=== PATIENT | female | born 1990 | race Caucasian/White ===

== ENCOUNTER 2020-04-19 11:07 | Outpatient (CLI) | payer MEDICAID ==
--- NOTE | 2020-04-19 18:30 | Consultation ---
DATE OF CONSULTATION: 04/19/2020 CHIEF COMPLAINT: Abdominal pain, bloating, GERD, constipation. HISTORY OF PRESENT ILLNESS: This is a 29-year-old female with a past medical history of IBS, history of celiac disease according to the patient, chronic GERD symptoms, now with constipation, who was referred for evaluation. PAST MEDICAL HISTORY: 1. Gastritis. 2. UTI. 3. GERD. 4. IBS. 5. Celiac disease, diagnosed with blood test. PAST SURGICAL HISTORY: None. MEDICATIONS: Please see medication reconciliation list. FAMILY HISTORY: No family history of GI malignancies. SOCIAL HISTORY: The patient drinks occasionally. Denies any IV drug abuse. Denies any tobacco abuse, but she has some edible marijuana. ALLERGIES: Penicillin. REVIEW OF SYSTEMS: Positive for abdominal pain, GERD, constipation, bloating. PHYSICAL EXAMINATION: VITAL SIGNS: Temperature 97.6, blood pressure 105/52, pulse 71, respirations 20. HEENT: Normocephalic, atraumatic. Sclerae anicteric. NECK: Supple. No evidence of obvious lymphadenopathy. CARDIOVASCULAR: Regular rate and rhythm. Plus S1-S2. LUNGS: Clear bilaterally. ABDOMEN: Positive bowel sounds. Soft and nontender. No rebound. No guarding. No peritoneal sign. EXTREMITIES: No cyanosis. No clubbing. No edema. ASSESSMENT/PLAN: A 29-year-old female with the above symptoms, apparently had an endoscopy, which was negative. She had a diagnosis of "celiac disease" and she is currently on celiac diet. Still having complaint of bloating and constipation and also chronic nausea. The patient was told to start on MiraLAX 17 g p.o. daily, Align 1 tablet p.o. daily. We are going to also treat her for possible SIBO with Xifaxan 550 mg t.i.d. for 14 days. The patient is to come back after above for further followup. Bridger Art M.D. DR: KAVITA JOB#: [id number] CC:
== END 2020-04-19 13:07 | disposition home or self-care (01) ==
LOC: PAN 11:07
DX: R10.9 Unspecified abdominal pain (principal); R14.0 Abdominal distension (gaseous); K21.9 Gastro-esophageal reflux disease without esophagitis; K59.00 Constipation, unspecified; K90.0 Celiac disease; R11.0 Nausea
CPT/HCPCS: G0463